=== PATIENT | female | born 1935 | race Two or more races ===

== ENCOUNTER 2024-12-07 10:06 | Inpatient (IN) | payer OTHER, BC ==
[2024-12-07 11:45] LABS: Hematocrit 36.5 % (36.0-45.0); RBC Red Blood Cell Count 4.34 M/uL (3.86-4.86)
[2024-12-07 11:46] LABS: Absolute Lymphocytes (CBC) 0.9 K/uL (0.7-4.9); Absolute Monocytes 0.5 K/uL (0.1-1.3); Absolute Neutrophil 4.9 K/uL (1.8-8.0); Basophils % 0.7 % (0-1.3); Eosinophils % 0.2 % (0-4.4); Lymphocytes % 14.3 % (15.3-44.8); MCH 29.9 pg (27.0-35.0); MCHC 35.5 g/dL (32.0-36.0); MCV 84.1 fL (80-100); MPV 8.3 fL (7.6-11.3); Monocytes % 7.3 % (3.3-12.3); Neutrophils % 77.5 % (41.7-73.7); Nucleated Red Blood Cells % 0.1 % (0-0); Platelets 211 thou/uL (152-406); Red Cell Distribution Width 13.4 % (12.1-15.2)
--- NOTE | 2024-12-07 11:46 | RAD REPORT ---
Procedure: Chest Single View HISTORY: Cough COMPARISON: 2008 FINDINGS: The lungs appear clear of acute infiltrate. No significant pleural effusion noted. The heart is normal size. IMPRESSION: No acute abnormality is displayed.
[2024-12-07 12:16] LABS: Albumin 3.4 g/dL (3.4-5.0); Albumin/Globulin Ratio 0.9 (1.1-1.8); Anion Gap 13.3 mEq/L (5.0-15.0); Bilirubin Direct 0.4 mg/dL (0-0.2); Bilirubin Indirect, Calculated 0.2 mg/dL (0.2-0.8); Bilirubin Total 0.6 mg/dL (0.2-1.0); Globulin 3.7 g/dL (2.3-3.5); Magnesium 1.3 mg/dL (1.6-2.4); Potassium 3.3 mEq/L (3.5-5.1); Protein, Total 7.1 g/dL (6.4-8.2); Troponin High Sensitivity 15.1 pg/mL (<58.9)
[2024-12-07 12:19] LABS: Specific Gravity 1.006 (1.005-1.030); Sqamous Epithelial None Seen /HPF (None Seen); Urine Bacteria <20 /HPF (<20); Urine Bilirubin NEGATIVE (Negative); Urine Blood Negative (Negative); Urine Clarity Clear (Clear); Urine Color Light-Yellow (Yellow); Urine Crystals Unidentified Few /HPF (None Seen); Urine Culture Reflex Order NOT NEEDED; Urine Glucose 3+ (Negative); Urine Ketones NEGATIVE (Negative); Urine Micro Reflex YN NO BILL MICROSCOPIC; Urine Nitrite NEGATIVE (Negative); Urine Protein NEGATIVE (Negative); Urine RBC <5 /HPF (None Seen); Urine Urobilinogen Normal (Normal); Urine WBC <5 /HPF (<5)
--- NOTE | 2024-12-07 12:19 | RAD REPORT ---
EXAM: CT brain without contrast HISTORY: Headache COMPARISON: None TECHNIQUE: Multiple contiguous axial images were obtained and a CT of the brain without contrast.. Sagittal and coronal reconstruction performed. Automated exposure control, adjustment of the mA and/or kV according to patient size, and/or iterative reconstruction. Unless otherwise specified, incidental f indings do not require dedicated imaging follow-up FINDINGS: An intracranial bleed is not seen Ventricles are normal caliber No extra-axial fluid collection noted No significant hypodensity within the brain Empty sella turcica is present. No fluid within the visualized sinuses or mastoids noted. Chronic opacification portions of the sphen oid, left frontal and left ethmoid sinus may indicate chronic sinusitis. IMPRESSION: No acute intracranial abnormality noted. Chronic sinusitis If the patient continues to have symptoms to suggest an acute intracranial abnormality then MRI of th e brain would be recommended.
[2024-12-07 12:41] LABS: Influenza A Ag Negative; Influenza B Ag Negative; SARS-CoV-2 Antigen Rapid Res Negative (Negative)
--- NOTE | 2024-12-07 13:24 | EDPHYS ---
Physician Documentation [facility] Name: Stephanie Jang Age: 89 yrs Sex: Female : 1935 Arrival Date: 12/07/2024 Time: 10:06 Bed 16 Private MD: ED Physician Norris Ann HPI: 12/07 10:35 This 89 yrs old [place] Female presents to ER via Ambulatory with complaints of cp Abnormal Lab Results, General Weakness, Headache. 10:35 The patient's problem is reported as altered mental status, confused, weakness, that is cp generalized. Onset: The symptoms/episode began/occurred 1 week(s) ago. 10:35 Associated signs and symptoms: Pertinent positives: left side headache, Pertinent cp negatives: diarrhea, vomiting. Patient's baseline: Neuro: alert and fully oriented, Motor: no deficits, Ambulation: walks without assistance, Speech: normal. Son-in-law reports patient had recent blood work that showed low sodium level. Patient also reports cough. Historical: - Allergies: 10:27 No Known Allergies; hb - Home Meds: 10:27 metformin 500 mg Oral tablet 2 times per day [Active]; losartan 50 mg oral tablet daily hb [Active]; amlodipine 5 mg tablet 2 times per day [Active]; famotidine 20 mg Oral tablet daily [Active]; budesonide inhalation [Active]; Albuterol Inhl [Active]; - PMHx: 10:27 Hyppertension; DM2; hb - Immunization history:: Adult Immunizations up to date. - Infectious Disease History:: Denies. - Social history:: Smoking status: unknown. ROS: 10:40 Constitutional: Negative for body aches, chills, fever, poor PO intake, cp 10:40 Cardiovascular: Negative for chest pain, palpitations, cp 10:40 Respiratory: Positive for cough, Negative for shortness of breath, wheezing, 10:40 Eyes: Negative for injury, pain, redness, and discharge, cp 10:40 Abdomen/GI: Negative for abdominal pain, vomiting, diarrhea, 10:40 Neuro: Positive for altered mental status, headache, weakness, Negative for speech changes, syncope, 10:40 All other systems are negative, cp Exam: 10:45 Constitutional: The patient appears in no acute distress, alert, awake, cp non-diaphoretic, non-toxic, well developed, well nourished, uncomfortable, 10:45 Head/Face: Normocephalic, atraumatic. cp 10:45 Eyes: Periorbital structures: appear normal, Pupils: equal, round, and reactive to light and accomodation, Extraocular movements: intact throughout, Conjunctiva: normal, no exudate, no injection, Sclera: no appreciated abnormality, Lids and lashes: appear normal, bilaterally, 10:45 ENT: External ear(s): are unremarkable, Nose: is normal, Mouth: Lips: moist, Oral cp mucosa: moist, Posterior pharynx: Airway: no evidence of obstruction, patent, 10:45 Neck: ROM/movement: is normal, is supple, without pain, no range of motions limitations, no meningismus, no nuchal rigidity, 10:45 Chest/axilla: Inspection: normal, 10:45 Cardiovascular: Rate: normal, Rhythm: regular, Edema: ankle edema, that is mild, JVD: is not appreciated, 10:45 Respiratory: the patient does not display signs of respiratory distress, Respirations: normal, no use of accessory muscles, no retractions, labored breathing, is not present, Breath sounds: are clear throughout, no decreased breath sounds, no stridor, no wheezing, 10:45 Abdomen/GI: Inspection: abdomen appears normal, Palpation: abdomen is soft and non-tender, in all quadrants, 10:45 Back: pain, is absent, ROM is normal, 10:45 Neuro: Orientation: to person, place, situation, Mentation: able to follow commands, Motor: moves all fours, no focal deficits, 10:47 ECG was reviewed by the Attending Physician. cp Vital Signs: 10:24 BP 157 / 71; Pulse 85; Resp 16; Temp 98.2(O); Pulse Ox 99% on R/A; Weight 40.82 kg; hb Height 5 ft. 1 in. ; Pain 4/10; 12:30 BP 147 / 64; Pulse 87; Resp 15; Pulse Ox 99% ; bp 16:29 BP 152 / 65; Pulse 90; Resp 15; Pulse Ox 99% ; bp 10:24 Body Mass Index 17.01 (40.82 kg, 154.94 cm) hb 10:24 Pain Scale: Adult hb MDM: 10:17 Medical Screening Exam initiated cp 13:15 Management of patient was discussed with the following: Primary Care Provider: DR Juan Pablo avila who will admit to ICU after discussion. requests consult with nephrology, DR Rushing. 13:30 Data reviewed: vital signs, nurses notes, lab test result(s), EKG, radiologic studies, cp CT scan, plain films, and as a result, I will admit patient. 13:30 Management of patient was discussed with the following: Plumbing Drafter: DR Сергей cp airconditioning plant operator, as requested by DR Almeida who wants patient to be given 3% NS at 40 mL hr for 2 hours only and repeat BMP. Discuss results with DR Rushing prior to continuing NS administration. 12/07 10:33 Order name: Basic Metabolic Panel; Complete Time: 12:23 cp 12/07 13:11 Interpretation: Normal except: NA 113; K 3.3; CL 77; GLUC 228; GFR 79. cp 12/07 10:33 Order name: CBC with Diff; Complete Time: 11:59 cp 12/07 11:59 Interpretation: Normal except: JOE% 77.5; LYM% 14.3. cp 12/07 10:33 Order name: LFT's; Complete Time: 12:23 cp 12/07 13:11 Interpretation: Normal except: BILID 0.4. cp 12/07 10:33 Order name: Magnesium; Complete Time: 12:23 cp 12/07 13:11 Interpretation: Abnormal: MG 1.3. cp 12/07 10:33 Order name: NT PRO-BNP; Complete Time: 12:23 cp 12/07 10:33 Order name: Troponin HS; Complete Time: 12:23 cp 12/07 10:33 Order name: COVID-19 Ag + Flu A+B Ag; Complete Time: 13:10 cp 12/07 13:10 Interpretation: Reviewed. cp 12/07 10:33 Order name: Urine Osmolality; Complete Time: 13:10 cp 12/07 10:33 Order name: Osmolality, Serum; Complete Time: 13:10 cp 12/07 13:10 Interpretation: Abnormal: OSMOL 244. cp 12/07 10:33 Order name: Urinalysis W/Microscopic; Complete Time: 12:23 cp 12/07 11:14 Order name: CPK; Complete Time: 18:11 rt 04/12 13:15 Order name: Urine Sodium Random; Complete Time: 18:11 cp 12/07 13:21 Order name: Cortisol; Complete Time: 18:11 cp 12/07 13:21 Order name: TSH; Complete Time: 18:11 cp 12/07 17:06 Order name: BMP: repeat after administration of 3% NS cp 12/07 17:19 Order name: BMP bp 12/07 17:56 Order name: Basic Metabolic Panel; Complete Time: 18:11 EDMS 12/07 18:15 Interpretation: Reviewed. cp 12/07 11:04 Order name: Chest Single View XRAY; Complete Time: 11:59 rt 12/07 12:00 Interpretation: Report review. cp 12/07 11:39 Order name: CT Head Brain wo Cont; Complete Time: 12:23 cp 12/07 13:12 Interpretation: Report reviewed. cp 12/07 15:46 Order name: CT Chest, Abdomen, Pelvis - W/Contrast bp 12/07 16:38 Order name: CT; Complete Time: 18:11 EDMS 12/07 10:33 Order name: Cardiac monitoring; Complete Time: 10:47 cp 12/07 10:33 Order name: EKG - Nurse/Tech; Complete Time: 10:47 cp 12/07 10:33 Order name: IV Saline Lock; Complete Time: 12:01 cp 12/07 10:33 Order name: Labs collected and sent; Complete Time: 12:02 cp 12/07 10:33 Order name: O2 Per Protocol; Complete Time: 10:47 cp 12/07 10:33 Order name: O2 Sat Monitoring; Complete Time: 10:47 cp 12/07 10:33 Order name: Accucheck Blood Glucose; Complete Time: 10:56 cp EC:47 Rate is 82 beats/min. Rhythm is regular. MI interval is normal. QRS interval is normal. cp QT interval is normal. Interpreted by me. Reviewed by me. Administered Medications: 13:45 Drug: Magnesium Sulfate IVPB 1 grams IVPB once over 1 hrs Route: IVPB; Infused Over: 1 bp hrs; Site: right antecubital; 14:46 Follow up: IV Status: Completed infusion bp 14:46 Drug: Sodium Chloride IV 3 % 80 ml 500 ml IV at 40 ml/hr once; *specify rate* 80 mL bp total at 40 mL/hr Volume: 500 ml; Route: IV; Rate: 40 ml/hr; Site: right antecubital; 17:33 Follow up: IV Status: Completed infusion bp Disposition: 20:25 Co-signature as Attending Physician, Norris Ann MD I reviewed the patient's care rt provided by Advanced Practice Provider \T\ agree w/ the diagnosis \T\ care plan. I personally saw the pt \T\ performed a substantive portion of the visit, incldng all aspects of the (History/Exam/Medical Decision Making). No abdominal tenderness, dry mucous membranes, I did personally by with the patient and performed a substantive portion of medical decision making.. 12/08 18:10 Chart complete. cp Disposition Summary: 12/07/24 13:24 Hospitalization Ordered Notes: Hospitalization Status: Inpatient Admission cp Provider: Arvin Almeida cp Condition: Stable cp Problem: new cp Symptoms: have improved cp Bed/Room Type: Standard cp Location: Intensive Care Unit(12/07/24 14:29) cp Room Assignment: 4-(12/07/24 15:18) Diagnosis - Hypo-osmolality and hyponatremia cp - Altered mental status, unspecified cp - Weakness cp - Hypomagnesemia cp Forms: - Medication Reconciliation Form cp - SBAR form cp - Leadership Thank You Letter cp Signatures: Dispatcher [employer] EDMS Marty Young PA PA cp Diana Garibay RN RN Lawrence Dykes RN RN Aneta Horner Ryan, MD MD rt Corrections: (The following items were deleted from the chart) 12/07 10:34 10:34 BASIC METABOLIC PANEL+C.LAB.BRZ ordered. EDMS EDMS 10:34 10:34 CBC+H.LAB.BRZ ordered. EDMS EDMS 10:34 10:34 HEPATIC FUNCTION+C.LAB.BRZ ordered. EDMS EDMS 10:34 10:34 MAGNESIUM+C.LAB.BRZ ordered. EDMS EDMS 10:34 10:34 PROBNP+C.LAB.BRZ ordered. EDMS EDMS 10:34 10:34 Troponin High Sensitivity+C.LAB.BRZ ordered. EDMS EDMS 10:34 10:34 COVID-19 Ag + Flu A+B Ag+I.LAB.BRZ ordered. EDMS EDMS 10:34 10:34 Osmolality, Urine ordered. EDMS EDMS 10:34 10:34 OSMOLALITY, SERUM+SC.LAB.BRZ ordered. EDMS EDMS 10:34 10:34 Urinalysis W/Microscopic+U.LAB.BRZ ordered. EDMS EDMS 10:34 10:34 Chest Single View+RAD.RAD.BRZ ordered. EDMS EDMS 13:21 13:21 Cortisol+C.LAB.BRZ ordered. EDMS EDMS 13:21 13:21 THYROID STIMULAT HORMONE+C.LAB.BRZ ordered. EDMS EDMS 14:29 13:24 Telemetry/MedSurg (Inpatient) cp cp 14:29 13:24 cp cp 15:18 14:29 cp eb
--- NOTE | 2024-12-07 13:24 | ER ---
Nurse's Notes [facility] Name: Stephanie Jang Age: 89 yrs Sex: Female : 1935 Arrival Date: 12/07/2024 Time: 10:06 Bed 16 Private MD: Diagnosis: Hypo-osmolality and hyponatremia;Altered mental status, unspecified;Weakness;Hypomagnesemia Presentation: 12/07 10:24 Chief complaint: Generalized weakness, left sided headache, and confusion x 1 week, hb sodium 116 on outpatient blood work yesterday. Started on Cefdinir, budesonide neb and albuterol yesterday for cough x weeks. Coronavirus screen: At this time, the client does not indicate any symptoms associated with coronavirus-19. Ebola Screen: No symptoms or risks identified at this time. Initial Sepsis Screen: Does the patient meet any 2 criteria? No. Patient's initial sepsis screen is negative. Does the patient have a suspected source of infection? No. Patient's initial sepsis screen is negative. Risk Assessment: Do you want to hurt yourself or someone else? Patient reports no desire to harm self or others. Onset of symptoms was December 07, 2024. 10:24 Method Of Arrival: Ambulatory hb 10:24 Acuity: ANNABELLE 2 hb Triage Assessment: 10:30 Headache History: The patient has had previous headaches and this one is similar to bp previous episodes. General: Appears in no apparent distress. comfortable, Behavior is calm, cooperative, appropriate for age. Pain: Complains of pain in head Pain currently is 5 out of 10 on a pain scale. Pain began 2-3 days ago. Also complains of no other associated symptoms. EENT: No deficits noted. Neuro: Level of Consciousness is awake, alert, obeys commands, Oriented to Appropriate for age. Cardiovascular: No deficits noted. Respiratory: No deficits noted. GI: No signs and/or symptoms were reported involving the gastrointestinal system. : No signs and/or symptoms were reported regarding the genitourinary system. Derm: No deficits noted. Musculoskeletal: No deficits noted. Historical: - Allergies: 10:27 No Known Allergies; hb - Home Meds: 10:27 metformin 500 mg Oral tablet 2 times per day [Active]; losartan 50 mg oral tablet daily hb [Active]; amlodipine 5 mg tablet 2 times per day [Active]; famotidine 20 mg Oral tablet daily [Active]; budesonide inhalation [Active]; Albuterol Inhl [Active]; - PMHx: 10:27 Hyppertension; DM2; hb - Immunization history:: Adult Immunizations up to date. - Infectious Disease History:: Denies. - Social history:: Smoking status: unknown. Screenin:30 [facility] ED Fall Risk Assessment (Adult) History of falling in the last 3 months, bp including since admission No falls in past 3 months (0 pts) Confusion or Disorientation No (0 pts) Intoxicated or Sedated No (0 pts) Impaired Gait Yes (1 pt) Mobility Assist Device Used No (0 pt) Altered Elimination No (0 pt) Score/Fall Risk Level 0 - 2 = Low Risk Oriented to surroundings. Abuse screen: Denies threats or abuse. Denies injuries from another. Nutritional screening: No deficits noted. Tuberculosis screening: No symptoms or risk factors identified. Assessment: 10:30 General: Appears in no apparent distress. comfortable, Behavior is appropriate for age. bp Pain: Complains of pain in head. 12:30 Reassessment: No changes from previously documented assessment. Patient is alert, bp oriented x 3, equal unlabored respirations, skin warm/dry/pink. 15:30 Reassessment: DR ALMEIDA AT B/S. PT ADMIT ON HOLD FOR CT CAP. bp 16:27 Reassessment: PT RETURNED FROM CT. bp 16:45 Reassessment: ADMIT ON HOLD FOR ICU STAFFING REARRANGEMENT. bp 17:32 Reassessment: REPORT TO TANIA RN FOR ICU4. bp Vital Signs: 10:24 BP 157 / 71; Pulse 85; Resp 16; Temp 98.2(O); Pulse Ox 99% on R/A; Weight 40.82 kg; hb Height 5 ft. 1 in. ; Pain 4/10; 12:30 BP 147 / 64; Pulse 87; Resp 15; Pulse Ox 99% ; bp 16:29 BP 152 / 65; Pulse 90; Resp 15; Pulse Ox 99% ; bp 10:24 Body Mass Index 17.01 (40.82 kg, 154.94 cm) hb 10:24 Pain Scale: Adult hb ED Course: 10:08 Patient arrived in ED. im 10:10 Marty Young PA is PHCP. cp 10:10 Norris Ann MD is Attending Physician. cp 10:23 Lawrence Diamond, RN is Primary Nurse. bp 10:27 Triage completed. hb 10:29 Arm band placed on. hb 10:30 Patient has correct armband on for positive identification. bp 11:44 Chest Single View XRAY In Process Unspecified. EDMS 12:02 Inserted saline lock: 22 gauge in right antecubital area, using aseptic technique. zm Flushed with 10 mL NS. 12:02 Initial lab(s) drawn, by me, sent to lab. bp 12:13 CT Head Brain wo Cont In Process Unspecified. EDMS 13:23 Arvin Almeida MD is Hospitalizing Provider. cp 13:31 Warm blanket given. kc6 17:32 No provider procedures requiring assistance completed. Patient admitted, IV remains in bp place. 17:33 Provided Education on: NA. bp Administered Medications: 13:45 Drug: Magnesium Sulfate IVPB 1 grams IVPB once over 1 hrs Route: IVPB; Infused Over: 1 bp hrs; Site: right antecubital; 14:46 Follow up: IV Status: Completed infusion bp 14:46 Drug: Sodium Chloride IV 3 % 80 ml 500 ml IV at 40 ml/hr once; *specify rate* 80 mL bp total at 40 mL/hr Volume: 500 ml; Route: IV; Rate: 40 ml/hr; Site: right antecubital; 17:33 Follow up: IV Status: Completed infusion bp Medication: 10:30 VIS not applicable for this client. bp Outcome: 13:24 Decision to Hospitalize by Provider. cp 17:32 Admitted to ICU accompanied by nurse, family with patient, via wheelchair, room ICU 4, bp with chart, Report called to TANIA NAJERA 17:32 Condition: stable 17:32 Instructed on the need for admit, 18:32 Patient left the ED. bp Signatures: Dispatcher [employer] EDMS Marty Young PA PA cp Baxter, Heather, RN RN Lawrence Diamond, Oma Adamson RN, Kaitlyn, RN RN kc6 Crys Kim Corrections: (The following items were deleted from the chart) 10:29 10:24 Chief complaint: Generalized weakness and confusion x 1 week, sodium 116 on hb outpatient blood work yesterday. Started on Cefdinir, budesonide neb and albuterol yesterday for cough x weeks. hb
[2024-12-07] MEDS ORDERED: MAGNESIUM SULFATE 1 gm IVPB 1 GM/100 ML BAG IV ONE (13:55)
[2024-12-07] MEDS ORDERED: NA CHLORIDE 3% 500 ML ONE (14:10)
--- NOTE | 2024-12-07 16:25 | P.HP ---
Patient History Date of Service: 12/07/24 Reason for admission: HYPONATREMIA History of Present Illness: ANTHONY IS A DIABETIC WHO IS A VERY WORRIED PERSON. SHE CAME TO OFFICE FOR SOME COUGH THAT WAS MILD AND FINISHED THE SYRUP IN 3 DAYS. SHE STILL COMPLAINS OF MILD SORE THROAT. ANTONIA CALLED TODAY AND REPORTED LOW SODIUM OF 116. AT ER IT IS DOWN TO 113. PER SON SHE DRINKS A LOT OF WATER DAILY. SHE HAS NO SYMPTOMS TO CAUSE DEHYDRATION OR FLUID OVERLOAD. Allergies NKDA Allergy (Uncoded 10/15/15 09:18) Unknown Home medications list reviewed: Yes Review of Systems 10-point ROS is otherwise unremarkable Physical Examination - Physical Exam General: Oriented x3, Mild distress HEENT: Atraumatic, PERRLA, Mucous membr. moist/pink, EOMI, Sclerae nonicteric Neck: Supple, 2+ carotid pulse no bruit, No LAD, Without JVD or thyroid abnormality Respiratory: Clear to auscultation bilaterally, Normal air movement Cardiovascular: Regular rate/rhythm, Normal S1 S2 Gastrointestinal: Normal bowel sounds, No tenderness Musculoskeletal: No tenderness Integumentary: No rashes Neurological: Normal gait, Normal speech, Normal strength at 5/5 x4 extr, Normal tone, Normal affect Lymphatics: No axilla or inguinal lymphadenopathy - Studies Laboratory Data (last 24 hrs) 12/07/24 12/07/24 11:20 11:20 WBC 6.30 Hgb 13.0 Hct 36.5 Plt Count 211 Sodium 113 L* Potassium 3.3 L BUN 10 Creatinine 0.73 Glucose 228 H Magnesium 1.3 L Total Bilirubin 0.6 AST 20 ALT 24 Alkaline Phosphatase 77 Assessment and Plan - Problems (Diagnosis) (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 SHE HAS NO HEADACHES OR OTHER CANCER RELATED ISSUES. HER S OSM IS 244 U OSM IS LOW AT 211 AND U SODIUM 26 SHE LOOKS EUVOLEMIC AT PRESENT. THIS MAY BE SIADH AND EXCERBATED BY EXCESS WATER INTAKE. WITH SODIUM AT 113 AND SOME CONFUSION, SHE IS GIVEN 3% SODIUM. WILL REDO U SODIUM IN AM AND IF IT IS HIGHER THAN 40. THIS CONFIRMS THE DIAGNOSIS. MRI BRAIN ON MONDAY FOR BRAIN TURMOR EVAL A CAUSE. PROGNOSIS IS FAIR. (2) Chronic sinus complaints Current Visit: Yes Status: Chronic Plan: WILL TRY FLONASE WILL ADVISE SINUS RINSE LATER. (3) Diabetes Current Visit: Yes Status: Chronic Plan: A1C RECENT LAB IS 7.2 SHE IS NOT EATING MUCH PER THE SON. - Advance Directives Does patient have a Living Will: No Does patient have a Durable POA for Healthcare: No
--- NOTE | 2024-12-07 16:37 | RAD REPORT ---
EXAM: Chest Abdomen Pelvis W Cont CLINICAL INDICATION: Cough and abdominal pain TECHNIQUE: CT chest, abdomen and pelvis was performed, with 100 cc Isovue-300 IV contrast, as per de partment protocol. Axial, sagittal and coronal reconstructions were obtained. One or more of the following dose reduction techniques were used: Automated exposure control, adjustment of the mA and/o r kV according to the patient size, and/or iterative reconstruction. Unless otherwise specified, incidental findings do not require dedicated imaging follow-up. [id number]. Oral contrast not given. This limits evaluation of the bowel. COMPARISON: 2016 CT abdomen FINDINGS: 4 mm nodule right middle lobe abuts the minor fissure. Areas of scarring within the lung apices bilaterally. 8 mm nodule right lobe thyroid gland likely benign No mediastinal or hilar lymphadenopathy. No pleural effusion.. No pericardial effusion Liver, spleen, pancreas, adrenals, kidneys and bladder do not demonstrate an acute traumatic injury. There is no evidence of diverticulitis Spondylosis lumbar spine results in spinal stenosis. No adnexal mass. IMPRESSION: 4 mm nodule right lung. Per Fleischner recommendations if the patient is low-risk: no routine follow-up required high-risk patients: optional CT at 12 months No acute abnormality involving the abdomen/pelvis seen
[2024-12-07 17:56] LABS: Anion Gap 8.1 mEq/L (5.0-15.0); Potassium 3.1 mEq/L (3.5-5.1)
[2024-12-07 19:58] VITALS: BMI 16.9
[2024-12-07] MEDS: FLUTICASONE 50MCG NASAL SPRAY NAS SCH (21:00)
[2024-12-07] MEDS: D5W 1,000 ML IV SCH ×2 (21:00→21:15)
[2024-12-07] MEDS ORDERED: ALBUTEROL 2.5 MG/3 ML NEB SOL IH PRN (21:17)
[2024-12-08] MEDS: D5W 1,000 ML IV SCH (00:05)
[2024-12-08] MEDS: DESMOPRESSIN 4 MCG/ML AMP SQ ONE (00:06)
[2024-12-08 05:18] LABS: Anion Gap 10.9 mEq/L (5.0-15.0); Potassium 2.9 mEq/L (3.5-5.1)
[2024-12-08] MEDS ORDERED: KCL 20 MEQ/100 mL IVPB 20 MEQ/100 ML BAG IV SCH (07:00)
[2024-12-08] MEDS: AMLODIPINE 5 MG TAB PO SCH (08:14)
[2024-12-08] MEDS: PANTOPRAZOLE 40MG TABLET PO SCH (08:14)
[2024-12-08] MEDS: METFORMIN HCL 500 MG TAB PO SCH (08:14)
[2024-12-08] MEDS: LOSARTAN POTASSIUM 50 MG TABLET PO SCH (10:39)
[2024-12-08] MEDS: KCL 20 MEQ/100 mL IVPB 20 MEQ/100 ML BAG IV SCH (10:41)
[2024-12-08 11:12] LABS: Anion Gap 8.7 mEq/L (5.0-15.0); Potassium 3.7 mEq/L (3.5-5.1)
[2024-12-08] MEDS: SODIUM CHLORIDE 1 GM TAB PO ONE (12:06)
[2024-12-08 15:02] LABS: Anion Gap 9.3 mEq/L (5.0-15.0); Potassium 3.3 mEq/L (3.5-5.1)
--- NOTE | 2024-12-08 19:09 | P.PN ---
Subjective Date of Service: 12/08/24 Chief Complaint: HYPONATREMIA Subjective: No new changes, Improving SHE IS STABLE. FEELS BETTER. PER FAMILY HER MENTATION IS GOOD. SHE HAS CHRONIC COUGH COMPLAINTS. HER CT SHOWS CHRONIC SINUSITIS. HER SON IS AN ALLGERGIST AND AGREES WITH FLONASE SPRAY. SHE HAS BEEN DRINKING A LOT OF WATER DAILY TO CONTROL COUGH AND SHE GUPLS THEM DOWN. THIS IS WHY SODIUM MAY HAVE RESET OSMOTIC CONTROLS. Review of Systems 10-point ROS is otherwise unremarkable Physical Examination - Vital Signs Temperature: 97.8 F Blood Pressure: 132/66 Pulse: 81 Respirations: 16 Pulse Ox (%): 97 - Physical Exam General: Alert, In no apparent distress HEENT: Atraumatic, PERRLA, EOMI Neck: Supple, JVD not distended Respiratory: Clear to auscultation bilaterally, Normal air movement Cardiovascular: Regular rate/rhythm, Normal S1 S2 Gastrointestinal: Normal bowel sounds, No tenderness Musculoskeletal: No tenderness Integumentary: No rashes Neurological: Normal speech, Normal tone, Normal affect Lymphatics: No axilla or inguinal lymphadenopathy - Studies Medications List Reviewed: Yes Assessment And Plan - Current Problems (Diagnosis) (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 SHE HAS NO HEADACHES OR OTHER CANCER RELATED ISSUES. HER S OSM IS 244 U OSM IS LOW AT 211 AND U SODIUM 26 SHE LOOKS EUVOLEMIC AT PRESENT. THIS MAY BE SIADH AND EXCERBATED BY EXCESS WATER INTAKE. MRI BRAIN ON MONDAY FOR BRAIN TURMOR EVAL A CAUSE. PROGNOSIS IS FAIR. URINE SODIUM IS IN 60S NOW. CONFIRMING THE SIADH DISGNOSIS. DR. CELAYA IS MANAGING ALL FLUID AND SODIUM RELATED ORDERS. DAILY LAB. SODIUM CAME TO 121. DR CELAYA CHANGED FLUIDS TO D5W. IT WENT DOWN TO 115. SHE DOES NOT WANT TO RAISE SODIUM TO HIGH TO AVOID COMPLICATIONS. NOW SHE IS ON SODIUM TABLETS AND FLUID RESTRICTION. (2) Chronic sinus complaints Current Visit: Yes Status: Chronic Plan: WILL TRY FLONASE WILL ADVISE SINUS RINSE LATER. (3) Diabetes Current Visit: Yes Status: Chronic Plan: A1C RECENT LAB IS 7.2 SHE IS NOT EATING MUCH PER THE SON.
[2024-12-08 20:00] LABS: Anion Gap 10.8 mEq/L (5.0-15.0)
[2024-12-08 20:01] LABS: Potassium 3.8 mEq/L (3.5-5.1)
[2024-12-08] MEDS: ATORVASTATIN 20 MG TAB PO SCH (20:41)
--- NOTE | 2024-12-08 21:12 | CON ---
Date of Consultation: 12/08/2024 Chief Complaint: Hyponatremia, SIADH. History Of Present Illness: The patient is admitted to ICU for severe hyponatremia. Prior to this a dmission, she had routine lab work done, which revealed sodium of 116 and she was referred by Dr. Bautista to emergency room and lab work done in the emergency room showed sodium of 113. The patient was c omplaining of mild dizziness, although she did not have syncope, nausea, vomiting, headache, vision c hanges. The patient apparently had episode of decreased appetite. Over the last month, she was comp laining of nonproductive cough and had upper respiratory infection associated with decreased appetite . She denies fever, chills, syncope, chest pain, palpitation, melena, hematemesis, dysuria, hematuri a. She denies daily treatment with nonsteroidal anti-inflammatory medication, although occasionally she takes nonsteroidal anti-inflammatory medication for usual pain and aches. The patient has history of diabetes mellitus. She is on low carb diet. Apparently, over last few we eks, she had decreased appetite and she was drinking Ensure and when she had sore throat, she was dri nking water. Review of Systems: Constitutional: Denies fever, chills. Eyes: Denies vision changes. Ears, Nose, Mouth and Throat: Denies sore throat, earache. Respiratory: Denies PND or orthopnea. Cardiovascular: Denies chest pain, palpitation, syncope. GI: Denies nausea, vomiting. : Denies dysuria, hematuria. All other systems reviewed and all are negative. Past Medical History: Diabetes mellitus, hypertension, osteoarthritis. Physical Examination: General: The patient is awake, alert. Follows commands. Eyes: Anicteric sclerae. EOMI. Ears, Nose, Mouth and Throat: Oral mucosa moist. No pallor. Neck: Supple. No bruits. Lungs: Diminished breath sounds at bases. Heart: S1, S2. Abdomen: Soft, benign. Extremities: No edema. Neurological: Moving extremities. Cranial nerves intact. Laboratory Work: WBC 6.3, hemoglobin 13, hematocrit 46.5. Sodium 113, potassium 3.3, BUN 10, creati nine 0.73, glucose 228. Magnesium 1.3. AST 20, ALT 24, AP 77. 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 Serum osmolality is 244. Urine o smolality is 211. Urine sodium level is 26 and results corresponds to SIADH. The patient has confus ion and she was given 3% of sodium chloride infusion. Sodium level has improved although IV fluids w ere changed to prevent overly rapid correction of hyponatremia. The patient is tolerating p.o. intak e. Plan is to continue sodium chloride tablets as needed and continue p.o. fluid restriction. Monit or renal panel. Adjust treatment according to lab results. 2. Hypothyroid. This was ruled out. Cortisol level is checked and does not correspond to adrenal in sufficiency. 3. Diabetes mellitus. Monitor blood glucose. 4. Hypomagnesemia, hypokalemia. Supplementation according to lab results. Monitor lab work closely. JEAN/MIGUEL ANGEL Voice ID: [id number] Report ID: [id number]
[2024-12-08] MEDS: LIDOCAINE 4% PATCH TOP ONE (22:03)
[2024-12-08] MEDS: SODIUM CHLORIDE 1 GM TAB PO SCH (22:03)
[2024-12-09 02:22] LABS: Anion Gap 12.5 mEq/L (5.0-15.0); Potassium 3.5 mEq/L (3.5-5.1)
[2024-12-09 05:27] LABS: Anion Gap 8.4 mEq/L (5.0-15.0); Magnesium 1.6 mg/dL (1.6-2.4); Potassium 3.4 mEq/L (3.5-5.1)
[2024-12-09 08:42] LABS: Anion Gap 8.5 mEq/L (5.0-15.0); Potassium 3.5 mEq/L (3.5-5.1)
[2024-12-09] MEDS: MAGNESIUM SULFATE 1 gm IVPB 1 GM/100 ML BAG IV ONE (09:15)
[2024-12-09] MEDS: POTASSIUM 25 MEQ EFFERV TAB PO ONE (09:15)
--- NOTE | 2024-12-09 10:53 | EKG ---
Test Date: 2024-12-07 Test Time: 10:41:32 Barrel Rifler Button: [place] MEASUREMENT RESULTS: Intervals: Rate: 82 ND: 186 QRSD: 90 QT: 384 QTc: 448 Colver: P: 78 ND: 186 QRS: 73 T: 55 INTERPRETIVE STATEMENTS: Normal sinus rhythm Normal ECG Compared to ECG 04/17/2009 19:38:10 No significant changes Electronically Signed On 12-09-24 10:48:45 CDT by Rosas Traore
--- NOTE | 2024-12-09 11:50 | RAD REPORT ---
EXAMINATION: MRI BRAIN WITHOUT AND WITH CONTRAST CLINICAL INDICATION: hyponatremia TECHNIQUE: Multiplanar multisequence MR images of the brain were obtained without and with intravenou s contrast. Unless otherwise specified, incidental findings do not require dedicated imaging follow-up. COMPARISON: No prior exam. FINDINGS: INTRACRANIAL: Diffusion-weighted images show no acute or early subacute infarction. There is mild bra in atrophy with mildT2/FLAIR hyperintensities in the periventricular and deep white matter regions, likely representing chronic microvascular ischemic changes. There is no mass effect or midline shift. No abnormal extraaxial fluid collection. VASCULATURE: Normal signal voids in the larger intracranial arteries and dural venous sinuses. SINUSES: The paranasal sinuses and mastoid air cells are predominantly clear. BONE: The marrow signal pattern is within normal limits. CONTRAST: No pathologic postcontrast enhancement to indicate tumor or infection. OTHER FINDINGS: IMPRESSION: No significant intracranial abnormalities.
[2024-12-09] MEDS ORDERED: ALBUTEROL 2.5 MG/3 ML NEB SOL NEB PRN (12:18)
[2024-12-09] MEDS: SODIUM CHLORIDE 1 GM TAB PO SCH (12:52)
[2024-12-09] MEDS: LIDOCAINE 4% PATCH TOP SCH (14:36)
[2024-12-09 14:52] LABS: Anion Gap 10.2 mEq/L (5.0-15.0); Potassium 4.2 mEq/L (3.5-5.1)
--- NOTE | 2024-12-09 17:21 | P.PN ---
Subjective Date of Service: 12/09/24 Chief Complaint: HYPONATREMIA Subjective: Improving SHE IS STABLE. FEELS BETTER. PER FAMILY HER MENTATION IS GOOD. SHE HAS CHRONIC COUGH COMPLAINTS. HER CT SHOWS CHRONIC SINUSITIS. HER SON IS AN ALLGERGIST AND AGREES WITH FLONASE SPRAY. SHE HAS BEEN DRINKING A LOT OF WATER DAILY TO CONTROL COUGH AND SHE GUPLS THEM DOWN. THIS IS WHY SODIUM MAY HAVE RESET OSMOTIC CONTROLS. GRADUALLY BETTER. MRI NEG FOR ANY MASSES. Physical Examination - Vital Signs Temperature: 98.3 F Blood Pressure: 146/72 Pulse: 89 Respirations: 14 Pulse Ox (%): 96 - Physical Exam General: Alert, In no apparent distress HEENT: Atraumatic, PERRLA, EOMI Neck: Supple, JVD not distended Respiratory: Clear to auscultation bilaterally, Normal air movement Cardiovascular: Regular rate/rhythm, Normal S1 S2 Gastrointestinal: Normal bowel sounds, No tenderness Musculoskeletal: No tenderness Integumentary: No rashes Neurological: Normal speech, Normal tone, Normal affect Lymphatics: No axilla or inguinal lymphadenopathy - Studies Medications List Reviewed: Yes Assessment And Plan - Current Problems (Diagnosis) (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 SHE HAS NO HEADACHES OR OTHER CANCER RELATED ISSUES. HER S OSM IS 244 U OSM IS LOW AT 211 AND U SODIUM 26 SHE LOOKS EUVOLEMIC AT PRESENT. THIS MAY BE SIADH AND EXCERBATED BY EXCESS WATER INTAKE. MRI BRAIN ON MONDAY FOR BRAIN TURMOR EVAL A CAUSE. PROGNOSIS IS FAIR. URINE SODIUM IS IN 60S NOW. CONFIRMING THE SIADH DISGNOSIS. DR. CELAYA IS MANAGING ALL FLUID AND SODIUM RELATED ORDERS. DAILY LAB. SODIUM CAME TO 121. DR CELAYA CHANGED FLUIDS TO D5W. IT WENT DOWN TO 115. SHE DOES NOT WANT TO RAISE SODIUM TO HIGH TO AVOID COMPLICATIONS. NOW SHE IS ON SODIUM TABLETS AND FLUID RESTRICTION. MEDS PER DR. CELAYA. STABLE. NA IS UP TO 123. (2) Chronic sinus complaints Current Visit: Yes Status: Chronic Plan: WILL TRY FLONASE WILL ADVISE SINUS RINSE LATER. (3) Diabetes Current Visit: Yes Status: Chronic Plan: A1C RECENT LAB IS 7.2 SHE IS NOT EATING MUCH PER THE SON.
[2024-12-09] MEDS: POTASSIUM CL SA 10 MEQ TAB PO SCH (19:50)
[2024-12-09] MEDS: BENZONATATE 100 MG CAP PO PRN (20:38)
--- NOTE | 2024-12-09 21:41 | PN ---
Date of Progress Note: 12/09/2024 Chief Complaint: Hyponatremia, SIADH. Subjective: The patient was admitted to ICU for severe hyponatremia. Prior to this admission, aramis carpio lab work was done, which revealed sodium of 116 and she was referred by Dr. Almeida to [facility], and emergency room blood work showed sodium of 113. The patient was complaining of mild dizziness . Denied syncope, nausea, vomiting, headache, vision changes. She was treated with 3% IV sodium chl oride. Subsequently, sodium level was 121 and then she required D5W and one dose of DDAVP to stabili ze gradual correction of hyponatremia. Today, the patient is feeling better. Review of Systems: Denies chest pain, palpitation. Physical Examination: Lungs: Clear to auscultation bilaterally. Heart: S1, S2. Abdomen: Soft, benign. Extremities: No edema. Impression And Plan: 1. Syndrome of inappropriate antidiuretic hormone. The patient developed severe hyponatremia due to syndrome of inappropriate antidiuretic hormone. Serum osmolality is 244. Urine osmolality is 211. Urine sodium level was 26, which corresponds to syndrome of inappropriate antidiuretic hormone. The patient had mild confusion and was treated with 3% of sodium chloride infusion in the emergency room. Subsequently, fluids were adjusted to have gradual correction of hyponatremia. The patient remains asymptomatic. She will continue sodium chloride tablets. Plan is to re-evaluate lab work and adjus t the treatment according to lab results. 2. Hypothyroidism was ruled out. Cortisol level was checked and it does not correspond to adrenal in sufficiency. 3. Diabetes mellitus. Monitor glucose level. 4. Hypomagnesemia and hypokalemia. Supplementation according to lab results. Monitor lab work. EB/MODL Voice ID: [id number] Report ID: [id number]
[2024-12-10 06:18] LABS: Absolute Basophils 0.1 K/uL (0-0.5); Absolute Eosinophils 0.1 K/uL (0-0.5); Absolute Lymphocytes (CBC) 1.2 K/uL (0.7-4.9); Absolute Monocytes 0.5 K/uL (0.1-1.3); Absolute Neutrophil 5.4 K/uL (1.8-8.0); Basophils % 1.3 % (0-1.3); Hematocrit 36.7 % (36.0-45.0); Hemoglobin 12.8 g/dL (12.0-15.0); Lymphocytes % 16.5 % (15.3-44.8); MCH 29.7 pg (27.0-35.0); MCHC 34.8 g/dL (32.0-36.0); MCV 85.4 fL (80-100); MPV 7.4 fL (7.6-11.3); Monocytes % 6.8 % (3.3-12.3); Neutrophils % 74.4 % (41.7-73.7); Nucleated Red Blood Cells % 0.1 % (0-0); Platelets 249 thou/uL (152-406); Red Cell Distribution Width 13.9 % (12.1-15.2)
[2024-12-10 06:39] LABS: Albumin 3.3 g/dL (3.4-5.0); Bilirubin Total 0.5 mg/dL (0.2-1.0); Globulin 3.4 g/dL (2.3-3.5); Protein, Total 6.7 g/dL (6.4-8.2)
[2024-12-10 08:23] VITALS: BP 152/69
[2024-12-10 09:21] VITALS: O2SAT 98
[2024-12-10 09:28] VITALS: TEMP 98
--- NOTE | 2024-12-10 11:01 | PN ---
Date of Progress Note: 12/10/2024 Subjective: The patient was admitted to the hospital with hyponatremia with neurological symptoms. The patient received 3%, has slight over correction. 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 The patient recovered very well. The patient back mentally to her baseline. No tremor. Physical Examination: Vital Signs: Blood pressure 152/69, pulse of 93, afebrile. Chest: Clear to auscultation. Heart: S1, S2. Systolic murmur. Abdomen: Soft, nontender. Extremities: No edema. Neurologic: Alert. No focality. Laboratory Data: Hemoglobin 12.8. Sodium 127, potassium 4, bicarb 27, BUN 15, creatinine 0.6, calci um 8.4. Urine sodium of 65. Current Medications: The patient is on: 1. Salt tablet. 2. B12. 3. Pepcid. 4. Atorvastatin. 5. Cefdinir. 6. Losartan. Assessment And Plan: 1. Hyponatremia secondary to SIADH, recovered, responding very well. I am going to continue salt tab let 2 g daily. The patient instructed to follow up in the office in 2 weeks and we will follow up re sponse. The patient cleared from the renal standpoint for discharge planning. 2. Hypertension. Continue current treatment. 3. Pneumonia as by primary. YOLANDA Voice ID: [id number] Report ID: [id number]
--- NOTE | 2024-12-10 13:13 | P.DS ---
Admission Date: 12/07/24 Discharge Date: 12/10/24 Disposition: ROUTINE DISCHARGE Reason for Admission: HYPONATREMIA - Problems (1) SIADH (syndrome of inappropriate ADH production) Status: Acute (2) Chronic sinus complaints Status: Chronic (3) Diabetes Status: Chronic Brief History of Present Illness: ANTHONY IS A DIABETIC WHO IS A VERY WORRIED PERSON. SHE CAME TO OFFICE FOR SOME COUGH THAT WAS MILD AND FINISHED THE SYRUP IN 3 DAYS. SHE STILL COMPLAINS OF MILD SORE THROAT. [facility] CALLED TODAY AND REPORTED LOW SODIUM OF 116. AT ER IT IS DOWN TO 113. PER SON SHE DRINKS A LOT OF WATER DAILY. SHE HAS NO SYMPTOMS TO CAUSE DEHYDRATION OR FLUID OVERLOAD. Hospital Course: ANTHONY IS A DIABETIC WHO DRINKS A LOT OF WATER DAILY. SHE HAD WEAKNESS AND CONFUSION WITH SODIUM OF 13. IT TOOK 3% SALINE AND FLUIDS AFTERWORDS TO RAISE IG GRADUALLY TO 127. SHE IS STABLE TO GO HOME ON ORAL SALT AND FLUID RESTRICTIONS. DR. OSORIO AND DR CELAYA IS ON THE CASE. SHE HAS CHRONIC SINUS AND COUGH COMPLAINTS. SHE WILL GET OTC FLONASE AND WILL TRY SINUS RINSE. Vital Signs/Physical Exam: Temp Pulse Resp BP Pulse Ox 98.0 F 93 H 18 152/69 H 98 12/10/24 08:00 12/10/24 08:22 12/10/24 08:00 12/10/24 08:22 12/10/24 08:00 Laboratory Data at Discharge: WBC 7.20 thou/uL (4.3-10.9) 12/10/24 05:53 Hgb 12.8 g/dL (12.0-15.0) 12/10/24 05:53 Hct 36.7 % (36.0-45.0) 12/10/24 05:53 Plt Count 249 thou/uL (152-406) 12/10/24 05:53 Sodium 127 mEq/L (136-145) L D 12/10/24 05:53 Potassium 4.0 mEq/L (3.5-5.1) 12/10/24 05:53 BUN 15 mg/dL (7-18) 12/10/24 05:53 Creatinine 0.63 mg/dL (0.55-1.02) 12/10/24 05:53 Glucose 154 mg/dL (74-106) H 12/10/24 05:53 Magnesium 1.7 mg/dL (1.6-2.4) 12/10/24 05:53 Total Bilirubin 0.5 mg/dL (0.2-1.0) 12/10/24 05:53 AST 12 U/L (15-37) L 12/10/24 05:53 ALT 20 U/L (13-56) 12/10/24 05:53 Alkaline Phosphatase 65 U/L (45-117) 12/10/24 05:53 Home Medications: Albuterol Sulfate [Proair Respiclick] 90 mcg IH BID PRN 12/07/24 Amlodipine [Norvasc] 5 mg PO DAILY 12/07/24 Atorvastatin Calcium [Lipitor*] 20 mg PO BEDTIME 12/07/24 Budesonide [Pulmicort*] 1 amp .ROUTE BID 12/07/24 Ca Citrate/Mgox/Vit D3/B6/Min [Citracal Plus Tablet] 400 mg PO DAILY 12/07/24 Cefdinir [Cefdinir*] 1 tab PO BID 12/07/24 Cholecalciferol (Vitamin D3) [Vitamin D3] 1 cap PO DAILY 12/07/24 Docosahexanoic AC/Epa [Fish Oil 1,000 MG*] 320 mg PO DAILY 12/07/24 Famotidine [Pepcid*] 20 mg PO BID 12/07/24 Glucosamine/D3/Boswellia Elda [Osteo Bi-Flex Tablet] 1 tab PO DAILY 12/07/24 Losartan Potassium 50 mg PO BEDTIME 12/07/24 Mecobalamin [B12 Active] 1 tab PO DAILY 12/07/24 Metformin HCl 500 mg PO BID 12/07/24 Sodium Chloride Tab [NaCl Tabs] 1 gm PO BID #60 tab 12/10/24 New Medications: Sodium Chloride Tab [NaCl Tabs] 1 gm PO BID #60 tab Followup: Arvin Almeida MD [Primary Care Provider] - 1 Week
== END 2024-12-10 10:00 | disposition home or self-care (01) | DRG 643 ==
LOC: ER 10:06 → ERHOLD 14:45 → 3RD-ICU 17:08 → 4TH 12-09 20:25
PROVIDERS: ADMIT Internal Medicine; ATTEND Internal Medicine
DX: E22.2 Syndrome of inappropriate secretion of antidiuretic hormone (principal); J18.9 Pneumonia, unspecified organism; I10 Essential (primary) hypertension; E87.6 Hypokalemia; J32.9 Chronic sinusitis, unspecified; E11.9 Type 2 diabetes mellitus without complications; E83.42 Hypomagnesemia; Z11.52 Encounter for screening for COVID-19; Z79.84 Long term (current) use of oral hypoglycemic drugs; Z79.899 Other long term (current) drug therapy
CPT/HCPCS: 36415; 70450; 70553; 71045; 71260; 74177; 80048; 80053; 80076; 81001; 82533; 82550; 82947; 83735; 83880; 83930; 83935; 84300; 84443; 84484; 85025; 87428; 93005; 96361; 96365; 99285; A9577; J2003; J2597; J3475; J3480; J7131; Q9967

== ENCOUNTER 2025-01-06 04:27 | Emergency (ER) | payer OTHER, BC ==
[2025-01-06] MEDS ORDERED: methocarbamoL 750 MG TAB ONE (05:28)
[2025-01-06] MEDS ORDERED: MORPHINE 2 MG/ML SYR ONE (05:28)
[2025-01-06] MEDS ORDERED: ONDANSETRON 4 MG/2 ML VIAL ONE (05:28)
[2025-01-06 05:32] LABS: Absolute Eosinophils 0.1 K/uL (0-0.5); Absolute Lymphocytes (CBC) 1.5 K/uL (0.7-4.9); Absolute Monocytes 0.4 K/uL (0.1-1.3); Basophils % 0.8 % (0-1.3); Eosinophils % 0.9 % (0-4.4); Hematocrit 38.6 % (36.0-45.0); Hemoglobin 13.4 g/dL (12.0-15.0); Lymphocytes % 24.8 % (15.3-44.8); MCH 30.6 pg (27.0-35.0); MCHC 34.6 g/dL (32.0-36.0); MCV 88.4 fL (80-100); MPV 8.2 fL (7.6-11.3); Monocytes % 6.5 % (3.3-12.3); Platelets 208 thou/uL (152-406); RBC Red Blood Cell Count 4.37 M/uL (3.86-4.86); Red Cell Distribution Width 14.4 % (12.1-15.2)
[2025-01-06 05:54] LABS: ALT/SGPT 17 U/L (13-56); Albumin 3.5 g/dL (3.4-5.0); Albumin/Globulin Ratio 0.9 (1.1-1.8); Alkaline Phosphatase 61 U/L (45-117); Anion Gap 10.8 mEq/L (5.0-15.0); BUN Blood Urea Nitrogen 19 mg/dL (7-18); Bicarbonate 27 mEq/L (21-32); Bilirubin Total 0.3 mg/dL (0.2-1.0); Globulin 3.8 g/dL (2.3-3.5); Glomerular Filtration Rate 61 ml/min (=/>90); Glucose Level 191 mg/dL (74-106); NT PRO-BNP 69 pg/mL (<450); Protein, Total 7.3 g/dL (6.4-8.2); Sodium Level 135 mEq/L (136-145)
[2025-01-06 05:55] LABS: AST/SGOT 15 U/L (15-37); Bilirubin Direct < 0.2 mg/dL (0-0.2); Bilirubin Indirect, Calculated 0.1 mg/dL (0.2-0.8); Potassium 3.8 mEq/L (3.5-5.1)
[2025-01-06 07:02] LABS: Protime INR 0.96
[2025-01-06 07:30] LABS: Sqamous Epithelial <5 /HPF (None Seen); Urine Bacteria <20 /HPF (<20); Urine Bilirubin NEGATIVE (Negative); Urine Blood Negative (Negative); Urine Clarity Extremely Turbid (Clear); Urine Color Colorless (Yellow); Urine Culture Reflex Order NOT NEEDED; Urine Glucose 2+ (Negative); Urine Ketones NEGATIVE (Negative); Urine Microscopic Reflex YN ORDER UMIC; Urine Mucus Slight /HPF (None Seen); Urine Nitrite NEGATIVE (Negative); Urine Protein NEGATIVE (Negative); Urine RBC <5 /HPF (None Seen); Urine Urobilinogen Normal (Normal); Urine WBC <5 /HPF (<5)
--- NOTE | 2025-01-06 07:53 | RAD REPORT ---
EXAM: CT CHEST, ABDOMEN AND PELVIS WITHOUT CONTRAST CLINICAL INDICATION: Female, 89 years old. [facility] MAIN ABDOMINAL DISTENTION Bed Name: 8 TECHNIQUE: CT chest, abdomen and pelvis was performed, without IV contrast, as per department protoco l. Axial, sagittal and coronal reconstructions were obtained. One or more of the following dose reduction techniques were used: Automated exposure control, adjustment of the mA and/or kV according to the patient size, and/or iterative reconstruction. Unless otherwise specified, incidental findings do not require dedicated imaging follow-up. COMPARISON: 12/07/2024 FINDINGS: The lack of intravenous contrast limits the sensitivity of this exam for evaluation of solid visceral organs, vascular structures, and retroperitoneum. Chest: LOWER NECK/CHEST WALL: Visualized thyroid gland and soft tissues are normal. LUNGS AND AIRWAYS: Airways are clear. No evidence of airspace or interstitial process. Stable 5 mm ri ght periFissural nodule on axial image 22 PLEURA: No pleural effusion. No pneumothorax. Hemidiaphragms are normally positioned. MEDIASTINUM AND LYMPH NODES: No mediastinal mass or fluid collection. Normal size mediastinal, hilar, and axillary lymph nodes. THORACIC AORTA: Normal caliber and configuration. PULMONARY ARTERIES: Normal caliber. HEART: Unremarkable. Abdomen/Pelvis LIVER: Normal in size and contour. No focal lesion. GALLBLADDER/BILE DUCTS: Mild layering probable sludge near the fundus. No biliary ductal dilatation. PANCREAS: No mass, ductal dilation, or vaughn-pancreatic fluid. SPLEEN: Normal size. No focal lesion. ADRENALS: Normal; no mass. KIDNEYS AND URETERS: Normal size and contour. No hydronephrosis. GASTROINTESTINAL TRACT: Stomach is non-dilated. Small bowel has normal course and caliber. No colonic wall thickening or pericolonic inflammatory changes. Mild diverticulosis along the ascending colon, without evidence of acute diverticulitis. PERITONEUM: No free fluid. LYMPH NODES: No lymphadenopathy. ABDOMINAL AORTA AND OTHER VESSELS: Normal caliber aorta and IVC. URINARY BLADDER: Normal contour. REPRODUCTIVE ORGANS: No pathologic process. MUSCULOSKELETAL: No acute or suspicious osseous abnormality. ADDITIONAL FINDINGS: None IMPRESSION: No acute or significant abnormalities in the chest, abdomen, or pelvis.
--- NOTE | 2025-01-06 08:31 | ER ---
Nurse's Notes [facility] Name: Stephanie Jang Age: 89 yrs Sex: Female : 1935 Arrival Date: 01/06/2025 Time: 04:27 Bed 8 Private MD: Diagnosis: Flank pain;Low back pain Presentation: 01/06 04:35 Chief complaint: Patient states: LEFT SIDE BACK PAIN THAT STARTED TONIGHT. PAIN IS OFF ha1 AND ON. 04:35 Coronavirus screen: Client denies travel out of the [place] in the last 14 days. Ebola ha1 Screen: No symptoms or risks identified at this time. Initial Sepsis Screen: Does the patient meet any 2 criteria? No. Patient's initial sepsis screen is negative. Does the patient have a suspected source of infection? No. Patient's initial sepsis screen is negative. Risk Assessment: Do you want to hurt yourself or someone else? Patient reports no desire to harm self or others. Onset of symptoms was January 06, 2025. 04:35 Method Of Arrival: Wheelchair ha1 04:35 Acuity: ANNABELLE 3 ha1 Triage Assessment: 04:55 General: Appears uncomfortable, Behavior is cooperative. Pain: Complains of pain in ha1 left low back Quality of pain is described as throbbing, Pain began 1 day ago. Neuro: Level of Consciousness is awake, alert, obeys commands, Oriented to person, place, time, situation. Cardiovascular: Capillary refill < 3 seconds Patient's skin is warm and dry. Respiratory: Airway is patent Respiratory effort is even, unlabored, Respiratory pattern is regular, symmetrical. Musculoskeletal: Reports pain in left low back. Historical: - Allergies: 04:55 No Known Allergies; ha1 - Home Meds: 04:55 metformin 500 mg Oral tablet 2 times per day [Active]; losartan 50 mg Oral tablet daily ha1 [Active]; famotidine 20 mg Oral tablet daily [Active]; amlodipine 5 mg tablet 2 times per day [Active]; budesonide inhalation [Active]; - PMHx: 04:55 DM2; Hyppertension; ha1 - Immunization history:: Adult Immunizations up to date. - Infectious Disease History:: Denies. - Social history:: Smoking status: Patient denies any tobacco usage or history of. - Family history:: not pertinent. Screenin:45 [facility] ED Fall Risk Assessment (Adult) History of falling in the last 3 months, lg3 including since admission No falls in past 3 months (0 pts) Confusion or Disorientation No (0 pts) Intoxicated or Sedated No (0 pts) Impaired Gait No (0 pts) Mobility Assist Device Used Yes (1 pt) Altered Elimination No (0 pt) Score/Fall Risk Level 0 - 2 = Low Risk Oriented to surroundings, Maintained a safe environment, Educated pt \T\ family on fall prevention, incl call for assistance when getting out of bed, Assessed \T\ reinforced patient's understanding of fall precautions. Abuse screen: Denies threats or abuse. Denies injuries from another. Nutritional screening: No deficits noted. Tuberculosis screening: No symptoms or risk factors identified. Assessment: 04:45 General: Appears in no apparent distress. uncomfortable, Behavior is calm, cooperative. lg3 Pain: Complains of pain in left low back, left flank Pain currently is 7 out of 10 on a pain scale. Noted to be grimacing, guarding, moaning, resistant to movement. Neuro: No deficits noted. Colbert Agitation-Sedation Scale (RASS): 0 - Alert and Calm Level of Consciousness is awake, alert, obeys commands, Oriented to person, place, time, situation. Cardiovascular: No deficits noted. Denies chest pain, shortness of breath, Capillary refill < 3 seconds Clubbing of nail beds is present JVD is present Patient's skin is warm and dry. Respiratory: No deficits noted. Airway is patent Respiratory effort is even, unlabored, Respiratory pattern is regular, symmetrical. GI: No deficits noted. No signs and/or symptoms were reported involving the gastrointestinal system. Abdomen is flat, non-distended. : No signs and/or symptoms were reported regarding the genitourinary system. EENT: No deficits noted. No signs and/or symptoms were reported regarding the EENT system. Derm: No deficits noted. No signs and/or symptoms reported regarding the dermatologic system. Skin is intact, is thin, Skin is dry, Skin is normal, Skin temperature is warm. Musculoskeletal: Circulation, motion, and sensation intact. Range of motion: intact in all extremities, Reports pain in left low back. 06:41 Reassessment: Patient appears in no apparent distress at this time. No changes from lg3 previously documented assessment. Patient and/or family updated on plan of care and expected duration. Pain level reassessed. Patient is alert, oriented x 3, equal unlabored respirations, skin warm/dry/pink. 06:59 General: son Davy [phone]. lg3 08:52 Reassessment: Patient appears in no apparent distress at this time. Patient and/or iw family updated on plan of care and expected duration. Pain level reassessed. Patient is alert, oriented x 3, equal unlabored respirations, skin warm/dry/pink. Patient states feeling better. Patient states symptoms have improved. Vital Signs: 04:35 BP 175 / 81; Pulse 92; Resp 16 S; Temp 98.1(O); Pulse Ox 98% on R/A; Weight 44.91 kg; ha1 Height 5 ft. 0 in. ; 06:41 BP 132 / 80; Pulse 67; Resp 17 S; Pulse Ox 99% on R/A; lg3 08:52 BP 134 / 87; Pulse 79; Resp 16; Pulse Ox 98% on R/A; iw 04:35 Body Mass Index 19.33 (44.91 kg, 152.4 cm) ha1 Lamar Coma Score: 06:24 Eye Response: spontaneous(4). Motor Response: obeys commands(6). Verbal Response: sp4 oriented(5). Total: 15. ED Course: 04:30 Patient arrived in ED. gm2 04:45 Patient has correct armband on for positive identification. Placed in gown. Bed in low lg3 position. Call light in reach. Side rails up X 1. Client placed on continuous cardiac and pulse oximetry monitoring. NIBP monitoring applied. Door closed. Noise minimized. Warm blanket given. Pillow given. Family accompanied patient. 04:45 Initial lab(s) drawn, by me, sent to lab. Inserted saline lock: 22 gauge in left lg3 forearm, using aseptic technique. Blood collected. Flushed with 10 mL NS. 04:49 Tee Mosley MD is Attending Physician. sp4 04:55 Triage completed. ha1 05:24 Sarahy Rebollar RN is Primary Nurse. lg3 07:05 CT Chest Abdomen Pelvis W/O Contrast In Process Unspecified. EDMS 07:19 Attending Physician role handed off by Tee Mosley MD ms3 07:19 Micky Yan DO is Attending Physician. ms3 08:52 No provider procedures requiring assistance completed. IV discontinued, intact, iw bleeding controlled, No redness/swelling at site. Pressure dressing applied. Administered Medications: 05:36 Drug: morphine IVP or IV 2 mg IVP once over 4 mins Route: IVP; Infused Over: 4 mins; lg3 Site: left forearm; 06:41 Follow up: Response: No adverse reaction; Marked relief of symptoms lg3 05:36 Drug: Ondansetron IVP 4 mg IVP once; over 2 minutes Route: IVP; Site: left forearm; lg3 06:40 Follow up: Response: No adverse reaction lg3 05:36 Drug: Methocarbamol PO 750 mg PO once Route: PO; lg3 06:40 Follow up: Response: No adverse reaction lg3 Medication: 04:45 VIS not applicable for this client. lg3 Outcome: 08:30 Discharge ordered by . ms3 08:52 Discharged to home ambulatory, iw 08:52 Condition: good 08:52 Discharge instructions given to patient, Instructed on discharge instructions, follow up and referral plans. Demonstrated understanding of instructions, follow-up care, 08:53 Patient left the ED. iw Signatures: Dispatcher [employer] EDMS Candy Marsh RN RN iw Sarahy Rebollar RN RN lg3 Micky Yan DO DO ms3 Cristy Mina RN RN ha1 Tee Mosley MD MD sp4 Dayana Silverio gm2
--- NOTE | 2025-01-06 08:31 | EDPHYS ---
Physician Documentation [facility] Name: Stephanie Jang Age: 89 yrs Sex: Female : 1935 Arrival Date: 01/06/2025 Time: 04:27 Bed 8 Private MD: ED Physician Micky Yan HPI: 01/06 04:50 This 89 yrs old [place] Female presents to ER via Unassigned with complaints of Low sp4 Back Pain. 06:24 Patient presents with acute left-sided back pain flank pain on the left as well sp4 starting tonight. Historical: - Allergies: 04:55 No Known Allergies; ha1 - Home Meds: 04:55 metformin 500 mg Oral tablet 2 times per day [Active]; losartan 50 mg Oral tablet daily ha1 [Active]; famotidine 20 mg Oral tablet daily [Active]; amlodipine 5 mg tablet 2 times per day [Active]; budesonide inhalation [Active]; - PMHx: 04:55 DM2; Hyppertension; ha1 - Immunization history:: Adult Immunizations up to date. - Infectious Disease History:: Denies. - Social history:: Smoking status: Patient denies any tobacco usage or history of. - Family history:: not pertinent. ROS: 06:24 Constitutional: Negative for fever, chills, and weight loss, positive left flank pain sp4 positive left-sided back pain 06:24 All other systems are negative, Exam: 06:24 Constitutional: Frail elderly female, Colombian speaking only Head/Face: sp4 Normocephalic, atraumatic. Eyes: Pupils equal round and reactive to light, extra-ocular motions intact. Lids and lashes normal. Conjunctiva and sclera are not injected. Cornea within normal limits. Periorbital areas with no swelling, redness, or edema. ENT: Nares patent. No nasal discharge, no septal abnormalities noted. Tympanic membranes are normal and external auditory canals are clear. Oropharynx with no redness, swelling, or masses, exudates, or evidence of obstruction, uvula midline. Mucous membranes moist. Neck: Trachea midline, no thyromegaly or masses palpated, and no cervical lymphadenopathy. Supple, full range of motion without nuchal rigidity, or vertebral point tenderness. Chest/axilla: Normal chest wall appearance and motion. Nontender with no deformity. No lesions are appreciated. Cardiovascular: Regular rate and rhythm with a normal S1 and S2. No gallops, murmurs, or rubs. Normal PMI, no JVD. No pulse deficits. Respiratory: Lungs have equal breath sounds bilaterally, clear to auscultation and percussion. No rales, rhonchi or wheezes noted. No increased work of breathing, no retractions or nasal flaring. Abdomen/GI: Soft, with normal bowel sounds. No distension or tympany. No guarding or rebound. No evidence of tenderness throughout. Back: No spinal tenderness. No costovertebral tenderness. Skin: Warm, dry with normal turgor. Normal color with no rashes, no lesions, and no evidence of cellulitis. MS/ Extremity: Pulses equal, no cyanosis. Neurovascular intact. Full, normal range of motion. Neuro: Awake and alert, GCS 15, oriented to person, place, time, and situation. Cranial nerves II-XII grossly intact. Motor strength 5/5 in all extremities. Sensory grossly intact. Psych: Awake, alert, with orientation to person, place and time. Behavior, mood, and affect are within normal limits Vital Signs: 04:35 BP 175 / 81; Pulse 92; Resp 16 S; Temp 98.1(O); Pulse Ox 98% on R/A; Weight 44.91 kg; ha1 Height 5 ft. 0 in. ; 06:41 BP 132 / 80; Pulse 67; Resp 17 S; Pulse Ox 99% on R/A; lg3 08:52 BP 134 / 87; Pulse 79; Resp 16; Pulse Ox 98% on R/A; iw 04:35 Body Mass Index 19.33 (44.91 kg, 152.4 cm) ha1 [facility] Coma Score: 06:24 Eye Response: spontaneous(4). Motor Response: obeys commands(6). Verbal Response: sp4 oriented(5). Total: 15. MDM: 05:37 Medical Screening Exam initiated sp4 06:25 Differential diagnosis: arthritis, strain, fracture, sciatica, contusion, Herniated sp4 disc UTI. Data reviewed: vital signs, nurses notes, radiologic studies, CT scan. 06:54 Consideration of Admission/Observation Escalation of care including sp4 admission/observation considered. Transition of care: After a detail discussion of the patient's case, care is transferred to Micky Yan DO. 06:55 ED course: Patient is waiting on CT scan chest abdomen pelvis. 4 07:19 Transition of care: Care assumed from Tee Mosley MD. ED course: Patient care/ sd3 report received from Dr Mosley. Patient with L flank and back pain- spasmotic. Pending CT.. 08:28 I considered the following discharge prescriptions or medication management in the [facility] [place] Medications were administered in the Emergency Department. See OCT. 08:28 Counseling: I had a detailed discussion with the patient and/or guardian regarding the [facility] historical points, exam findings, and any diagnostic results supporting the discharge/admit diagnosis, lab results, radiology results, the need for outpatient follow up, to return to the emergency department if symptoms worsen or persist or if there are any questions or concerns that arise at home. ED course: Discussed GFR of [address] abdomen pelvis without acute abnormalities. Patient to follow-up with primary care physician in 2 to 3 days. Patient or stands and agrees to plan. All questions were answered. Return precautions discussed include worsening symptoms, or any other concerns.. 01/06 04:51 Order name: Basic Metabolic Panel; Complete Time: 06:16 sp4 01/06 04:51 Order name: CBC with Diff; Complete Time: 06:16 sp4 01/06 04:51 Order name: LFT's; Complete Time: 06:16 sp4 01/06 04:51 Order name: NT PRO-BNP; Complete Time: 06:16 sp4 01/06 04:51 Order name: PT-INR; Complete Time: 07:04 sp4 01/06 04:51 Order name: Troponin HS; Complete Time: 06:16 sp4 01/06 07:16 Order name: UA Rfx Bayron Cult if indicated; Complete Time: 08:25 bc6 01/06 04:51 Order name: CT Chest Abdomen Pelvis W/O Contrast; Complete Time: 08:25 sp4 01/06 04:51 Order name: Cardiac monitoring; Complete Time: 05:37 sp4 01/06 04:51 Order name: IV Saline Lock; Complete Time: 05:37 sp4 01/06 04:51 Order name: Labs collected and sent; Complete Time: 05:37 sp4 01/06 04:51 Order name: O2 Per Protocol; Complete Time: 05:37 sp4 01/06 04:51 Order name: O2 Sat Monitoring; Complete Time: 05:37 sp4 Administered Medications: 05:36 Drug: morphine IVP or IV 2 mg IVP once over 4 mins Route: IVP; Infused Over: 4 mins; lg3 Site: left forearm; 06:41 Follow up: Response: No adverse reaction; Marked relief of symptoms lg3 05:36 Drug: Ondansetron IVP 4 mg IVP once; over 2 minutes Route: IVP; Site: left forearm; lg3 06:40 Follow up: Response: No adverse reaction lg3 05:36 Drug: Methocarbamol PO 750 mg PO once Route: PO; lg3 06:40 Follow up: Response: No adverse reaction lg3 Disposition Summary: 01/06/25 08:30 Discharge Ordered Notes: Location: Home ms3 Condition: Stable ms3 Diagnosis - Flank pain ms3 - Low back pain ms3 Followup: ms3 - With: Private Physician - When: 2 - 3 days - Reason: Recheck today's complaints Discharge Instructions: - Discharge Summary Sheet ms3 - Acute Back Pain, Adult ms3 Forms: - Medication Reconciliation Form ms3 - Antibiotic Education ms3 - Prescription Opioid Use ms3 - Patient Portal Instructions ms3 - Leadership Thank You Letter ms3 Prescriptions: - tizanidine 2 mg Oral tablet - take 1 tablet ORAL route every 6 to 8 hours as needed for muscle spasticity; do ms3 not exceed 3 doses per 24 hrs; 15 tablet; Refills: 0, Product Selection Permitted Signatures: Dispatcher [employer] EDMS Sarahy Rebollar RN RN lg3 Micky Yan DO DO ms3 Cristy Mina RN RN ha1 Tee Mosley MD MD sp4 Corrections: (The following items were deleted from the chart) 04:51 04:51 BASIC METABOLIC PANEL+C.LAB.BRZ ordered. EDMS EDMS 04:51 04:51 CBC+H.LAB.BRZ ordered. EDMS EDMS 04:51 04:51 HEPATIC FUNCTION+C.LAB.BRZ ordered. EDMS EDMS 04:51 04:51 PROBNP+C.LAB.BRZ ordered. EDMS EDMS 04:51 04:51 PROTIME (+INR)+COAG.LAB.BRZ ordered. EDMS EDMS 04:51 04:51 Troponin High Sensitivity+C.LAB.BRZ ordered. EDMS EDMS
[2025-01-06 08:59] VITALS: TEMP 98.1
[2025-01-06 09:02] VITALS: BP 134/87; O2SAT 98
== END 2025-01-06 08:53 | disposition home or self-care (01) ==
LOC: ER 04:27
DX: R10.32 Left lower quadrant pain (principal); M54.50 Low back pain, unspecified; E11.9 Type 2 diabetes mellitus without complications; I10 Essential (primary) hypertension
CPT/HCPCS: 85025; 81001; 80048; 36415; 85610; 80076; 84484; 83880; 71250; 74176; 96375; 96374; 99284; J2270; J2405; Q9967